=== PATIENT | male | born 1975 | race Two or more races ===

== ENCOUNTER 2016-06-14 20:15 | Emergency (ER) | payer MEDICAID ==
--- NOTE | ~2016-06-14 | CT2 ---
[facility] A Service of [facility] RADIOLOGY TEXT RESULTS PATIENT: BESSIE GATES LOCATION: [facility] : 79 UNIT #: [id number] AGE: [address]: Allen Cooper DO SEX: M ORDER DR: [id number] [address] [place], [place] [address] [id number] E MR#: [id number] #: [id number] NAME: BESSIE GATES : 1975 SEX: M STUDY DATE/TIME: 06/14/2016 20:45 UNIT: [facility] ROOM: STUDY DESCRIPTION: CT Abd and Pelv W Cont Attending Physician: Allen Cooper D.O. Ordering Physician: Allen Cooper D.O. Primary Care Physician: No Primary Care Physician MEDICAL IMAGING REPORT This report is preliminary unless electronic signature is present EXAM CT abdomen and pelvis with IV contrast. HISTORY Nausea, vomiting and diarrhea for 6 days. Abdomen cramping. TECHNIQUE This CT exam was performed with one or more of the following radiation dose reduction techniques: automatic exposure control, adjustment of mA and/or kV according to patient size, and iterative reconstruction. FINDINGS CT abdomen and pelvis was performed with IV contrast. CT ABDOMEN: The lung bases are clear. The liver, gallbladder, spleen, pancreas, kidneys, and adrenal glands are normal. Normal caliber abdominal aorta. No bowel dilatation. No ascites or adenopathy. CT PELVIS: Normal appendix. No free fluid. No inflammatory stranding or adenopathy. Urinary bladder is unremarkable. IMPRESSION 1. Negative CT abdomen and pelvis with IV contrast. 2. Normal appendix. 3. No urinary obstruction or bowel obstruction. Dictated by... [facility] A Service [facility] RADIOLOGY TEXT RESULTS PATIENT: BESSIE GATES LOCATION: [facility] : 79 UNIT #: [id number] AGE: [address]: Allen Cooper DO SEX: M ORDER DR: Rodolfo Bella M.D. THIS IS AN ELECTRONICALLY VERIFIED REPORT Rodolfo Bella M.D. at 06/14/2016 11:48 PM PAT/mabel TD: 06/14/2016 23:18 JOB #: [id number] MEDICAL IMAGING REPORT Page 1 of 1 COPY
[2016-06-14 16:37] LABS: BASOPHIL% 0.8 % (0-2.5); DIFF IND NO; EOSINOPHIL# 0.1 X10e3 (0-0.7); EOSINOPHIL% 1.8 % (0.0-7.0); HEMATOCRIT 44.5 % (38.0-50.0); HEMOGLOBIN 14.9 gm/dL (13.0-16.0); LYMPHOCYTE# 1.8 X10e3 (1.0-3.5); LYMPHOCYTE% 30.7 % (17.0-45.0); MEAN CELL VOLUME 91.5 FL (83-96); MEAN CORPUSCULAR HEMOGLOBIN 30.6 PG (28-34); MEAN CORPUSCULAR HGB CONC 33.4 g/dL (30-36); MEAN PLATELET VOLUME 10.2 FL (6.5-11.5); MONOCYTE# 0.6 X10e3 (0-1.0); MONOCYTE% 10.7 % (3.0-12.0); NEUTROPHIL# 3.3 X10e3 (1.5-7.1); PLATELET COUNT 196 X10e3 (140-420); RED BLOOD COUNT 4.86 X10e (3.90-5.60); WHITE BLOOD COUNT 5.9 X10e3 (4.0-10.5)
[2016-06-14 17:02] LABS: ALBUMIN SERUM 4.1 g/dL (3.5-5.0); ALKALINE PHOSPHATASE 69 U/L (32-92); ALT (SGPT) 34 U/L (10-40); AST (SGOT) 41 U/L (10-42); BILIRUBIN,TOTAL 0.6 mg/dL (0.2-2.0); BLOOD UREA NITROGEN 18 mg/dL (9-23); BUN/CREATININE RATIO 16.36; CALCIUM SERUM 8.7 mg/dL (8.4-10.2); CARBON DIOXIDE 25 mmol/L (22-31); CHLORIDE 105 mmol/L (100-111); CREATININE SERUM 1.1 mg/dL (0.6-1.4); GLOM FILT RATE Estimated 84.1 mL/min (>60); GLUCOSE FASTING 85 mg/dL (70-110); LIPASE 23 U/L (22-51); POTASSIUM 4.3 mmol/L (3.5-5.1); SODIUM 137 mmol/L (135-145)
[2016-06-14 17:05] LABS: BILIRUBIN, DIRECT <0.1 mg/dL (0.0-0.2); BILIRUBIN,INDIRECT 0.5 mg/dL (0.0-0.9)
[2016-06-14 20:11] LABS: URINE SOURCE CLEAN CATCH
[2016-06-14 20:16] LABS: URINE APPEARANCE CLEAR; URINE BILIRUBIN NEG (NEG); URINE BLOOD NEG (NEG); URINE COLOR YELLOW; URINE GLUCOSE NEG (NEG); URINE KETONE NEG (NEG); URINE LEUKOCYTE ESTERASE NEG (NEG); URINE NITRATE NEG (NEG); URINE PH 6.5 (5-8); URINE PROTEIN NEG (NEG); URINE SPECIFIC GRAVITY 1.009 (1.003-1.035); URINE UROBILINOGEN 0.2 MG/DL (NEG)
[2016-06-14 20:22] LABS: CULTURE INDICATED? NO
== END 2016-06-14 22:15 | disposition home or self-care (01) ==
LOC: CED 20:15
DX: R10.9 Unspecified abdominal pain (principal); R19.7 Diarrhea, unspecified
CPT/HCPCS: 74177; 80048; 80076; 81003; 83690; 85025; 96360; 99284; Q9967